=== PATIENT | female | born 1960 | race Caucasian/White ===

== ENCOUNTER 2017-02-09 00:20 | Emergency (ER) | payer SELFPAY ==
[2017-02-09 00:22] VITALS: BP 163/77; PULSE 96; RESP 20; TEMP 99.4; O2SAT 97
== END 2017-02-09 02:12 | disposition left against medical advice (07) ==
LOC: NED 00:20
DX: R10.9 Unspecified abdominal pain (principal); Z53.21 Procedure and treatment not carried out due to patient leaving prior to being seen by health care provider
CPT/HCPCS: 99281